=== PATIENT | male | born 1965 | race American Indian/Alaskan Native ===

== ENCOUNTER 2019-05-26 05:47 | Day surgery (SDC) | payer BC ==
[~2019-05-26 05:47] MED LIST: LACTATED RINGERS 1,000 ML IV SCH
[2019-05-26] MEDS ORDERED: NEURONTIN PO NR (06:00)
[2019-05-26] MEDS ORDERED: VERSED IV NR (06:00)
[2019-05-26] MEDS ORDERED: NACL BACTERIOSTATIC INFILTRATI ONE (06:21)
[2019-05-26] MEDS ORDERED: DILAUDID IV PRN (07:27)
--- NOTE | 2019-05-26 07:27 | Anesthesia Day of Surgery ---
Anesthesia Day of Surgery - Day of Surgery Patient Examined: Yes Patient H&P Reviewed: Yes Patient is NPO: Yes
--- NOTE | 2019-05-26 07:27 | Anesthesia Consultation ---
Anesthesia Consult and Med Hx Date of service: 05/26/19 - Airway Anesthetic Teeth Evaluation: Good ROM Head & Neck: Adequate Mental/Hyoid Distance: Adequate Mallampati Class: Class III Intubation Access Assessment: Possibly Difficult - Pulmonary Exam CTA: Yes - Cardiac Exam Cardiac Exam: RRR - Pre-Operative Health Status ASA Pre-Surgery Classification: ASA2 Proposed Anesthetic Plan: General - Pulmonary Hx Smoking: No Hx Respiratory Symptoms: No Hx Sleep Apnea: No (KIERSTEN PRE SCREEN HIGH RISK) - Cardiovascular System Hx Hypertension: Yes (took amlodipine this morning) Hx Heart Attack/AMI: No Hx Percutaneous Transluminal Coronary Angioplasty (PTCA): No - Central Nervous System Hx Seizures: No CVA: No - Gastrointestinal Hx Gastroesophageal Reflux Disease: No - Endocrine Hx Renal Disease: No Hx Liver Disease: No Hx Insulin Dependent Diabetes: No Hx Non-Insulin Dependent Diabetes: No Hx Thyroid Disease: No - Other Systems Hx Obesity: No - Additional Comments Anesthesia Medical History Comments: No prior GA. No FHx anesthetic complications.
[2019-05-26] MEDS ORDERED: ANCEF/STERILE WATER 2 GM/20 ML 2 GM/20 ML SYRINGE IV ONE (07:30)
[2019-05-26] MEDS ORDERED: MARCAINE-EPI 0.25%-1:200,000 INFILTRATI ONE ×2 (07:36→08:27)
[2019-05-26] MEDS ORDERED: DIPRIVAN 10 MG/ML IV ONE (07:43)
[2019-05-26] MEDS ORDERED: SUBLIMAZE ONE (07:43)
[2019-05-26] MEDS ORDERED: ceFAZolin 2 GM in NACL 0.9% 100 ML IV ONE (08:00)
[2019-05-26] MEDS ORDERED: ROBINUL ONE ×2 (08:00→08:33)
[2019-05-26] MEDS ORDERED: BLOXIVERZ ONE (08:00)
[2019-05-26] MEDS ORDERED: NACL 0.9% IR ONE (08:28)
[2019-05-26] MEDS ORDERED: DECADRON ONE (08:33)
[2019-05-26] MEDS ORDERED: ZEMURON IV ONE (08:33)
[2019-05-26] MEDS ORDERED: ZOFRAN ONE (08:33)
[2019-05-26] MEDS ORDERED: XYLOCAINE MPF 2% ONE (08:33)
[2019-05-26] MEDS ORDERED: QUELICIN ONE (08:33)
--- NOTE | 2019-05-26 09:17 | Discharge Summary ---
Short Stay Discharge Plan Activity: other (observe x 4 hrs then may d/c if stable and able to void. ice pack L groin x 6 hrs. scrotal support x 3 days) Diet: other (cl liq diet. may advance to reg as patsy) Wound: keep clean and dry (x 5 days) Special Instructions: other (no lifting over 5 lbs x 3 wks) Additional Instructions: aleve I po q 6-8 hrs prn for breakthrough pain. surfak I po q am x 3 Follow up with: JACINTO ROCHE MD [Staff Physician] - 7 Days
--- NOTE | 2019-05-26 09:43 | Operative Report ---
PREOPERATIVE DIAGNOSIS: Left inguinal hernia. POSTOPERATIVE DIAGNOSIS: Large indirect left inguinal hernia. PROCEDURES: 1. Open left inguinal hernia repair with mesh. 2. Excision of lipoma cord. SURGEON: Murphy Hamilton MD. ANESTHESIA: General. ESTIMATED BLOOD LOSS: Minimal. No drains or complications. DESCRIPTION OF PROCEDURE: The patient was taken up to the operating room, prepped and draped in usual sterile fashion. Incision was made using his landmarks anterior superior iliac spine and the pubic tubercle. Incision was carried down to the external oblique fascia. External oblique fascia was then transected down to the external inguinal ring. Cord was then isolated with a [place] drain at the level of the pubic tubercle. Cord was then inspected and a large indirect hernia sac was identified with a thickened wall. The sac was dissected free in its entirety. The neck of the sac was then closed with a pursestring 2-0 silk suture. A portion of the sac was sent as specimen. Also, a lipoma of the cord was noted, which was also excised and sent as specimen. A keyhole Marlex mesh was then used to reconstruct the inguinal canal floor. The mesh was tacked to the area of the pubic tubercle with a tacker. A mesh was then secured to the transversalis fascia medially and iliopubic tract laterally with #1 and 0 Surgilon sutures. After completion of repair, the area was inspected and the floor noted to be well reconstructed. All cord structures including the ilioinguinal nerve were once again confirmed to be intact. The area was irrigated copiously and dried. Checked for hemostasis and noted to be dry. The external oblique fascia was closed over the cord with running 2-0 Vicryl suture. Subcutaneous tissues irrigated. Skin closed with cristobal. A 0.5% Marcaine with epinephrine was infiltrated over the fascia as well as subcutaneous and skin for postop pain relief. The ilioinguinal nerve block was also performed. The patient tolerated the procedure well and left OR in stable condition. JOB# [id number] VALE/NTS
[2019-05-26 15:37] VITALS: BP 115/68
== END 2019-05-26 05:48 | disposition home or self-care (01) ==
LOC: OR 05:47
PROVIDERS: ATTEND Surgery
DX: K40.90 Unilateral inguinal hernia, without obstruction or gangrene, not specified as recurrent (principal); D17.6 Benign lipomatous neoplasm of spermatic cord; I10 Essential (primary) hypertension; Z98.890 Other specified postprocedural states; Z79.899 Other long term (current) drug therapy
CPT/HCPCS: 49505; 88302; 88304; C1781; J0330; J0690; J1100; J2250; J2405; J2704; J2710; J3010; J7120